=== PATIENT | male | born 1980 | race Caucasian/White ===

== ENCOUNTER 2021-10-01 22:03 | Emergency (ER) | payer OTHER ==
[~2021-10-01] VITALS: Ht 185 cm; Wt 142.7 kg
[2021-10-01] MEDS ORDERED: ACETAMINOPHEN 325 MG TABLET PO ONE (22:30)
[2021-10-01] MEDS ORDERED: NS IV 1000 ML 1,000 ML IV SCH (22:30)
--- NOTE | 2021-10-01 22:40 | ED General ---
General Stated Complaint: FEVER,CHILLS Source of Information: Patient History of Present Illness Date Seen by Provider: Oct 01, 2021 Time Seen by Provider: 22:08 Initial Comments 41-year-old male presenting with complaints of fever, chills, general weakness and lightheadedness. He felt like he could pass out tonight when he was getting up and trying to walk around. He has been coughing and coughing up some thick sputum. He denies any known ill contacts. He has had subjective fever but states he does not have a thermometer so is not sure how high his fever gotten. He has had some chills along with this. He has had some loose stools but denies any vomiting. He has a history of high blood pressure but does not take any medications and does not follow with any medical providers. He has a mild headache on presentation to the ED. His symptoms have been going on for for 5 days but he only now came to be seen in the emergency department. He states there is nothing different tonight other than he just feels weak and lightheaded. He has not tried to go to an urgent care or be seen anytime before tonight, on . Timing/Duration: 4-5 Days Severity: Moderate Modifying Factors: worse with Movement Associated Systoms: No Chest Pain; Cough, Diaphoresis, Fever/Chills, Headaches, Malaise; No Nausea/Vomiting, No Seizure; Shortness of Air; No Syncope; Weakness (Generalized) Allergies and Home Medications Allergies Coded Allergies: Penicillins (Verified Allergy, Severe, Anaphylaxis, 10/01/21) Iodine and Iodide Containing Produc (Verified Allergy, Intermediate, 10/01/21) swelling Patient Home Medication List Home Medication List Reviewed: Yes Azithromycin (Azithromycin) 500 Mg Tablet, 500 MG PO DAILY Prescribed by: DESIREE SILVA on 10/01/21 2341 Lisinopril/Hydrochlorothiazide (Lisinopril-Hctz 10-12.5 mg Tab) 1 Each Tablet, 1 EACH PO DAILY Prescribed by: DESIREE SILVA on 10/01/21 2341 Review of Systems Review of Systems Constitutional: see HPI, chills, fever EENTM: nose congestion; No epistaxis Respiratory: cough, dyspnea on exertion, phlegm, short of breath; No stridor, No wheezing Cardiovascular: No chest pain, No edema; palpitations Gastrointestinal: No abdominal pain; diarrhea (Loose stools); No nausea, No vomiting Genitourinary: No dysuria, No frequency Musculoskeletal: muscle pain (Generalized body aches and muscle and joint pain) Skin: No rash Psychiatric/Neurological: Headache (Mild generalized headache); Denies Numbnes s, Denies Paresthesia, Denies Seizure, Denies Tingling, Denies Tremors; Weakness (Generalized) Hematologic/Lymphatic: Denies Blood Clots Past Mwgcwmw-Ieuqst-Jhhtic Hx Patient Social History Tobacco Use?: No Use of E-Cig and/or Vaping dev: No Substance use?: No Alcohol Use?: No Immunizations Up To Date Influenza Vaccine Up-to-Date: No; Not Current Past Medical History Surgery/Hospitalization HX: Hypertension Surgeries: Yes Tonsillectomy Respiratory: No Cardiac: Yes Hypertension Neurological: No Genitourinary: No Gastrointestinal: No Musculoskeletal: No Endocrine: No HEENT: No Psychosocial: No Physical Exam Vital Signs Vital Signs - First Documented 10/01/21 22:10 Temp 39.1 Pulse 135 Resp 20 B/P (MAP) 160/109 (126) Pulse Ox 94 O2 Delivery Room Air Capillary Refill : Height, Weight, BMI Height: '" Weight: lbs. oz. kg; BMI Method: General Appearance: Mild Distress, Obese HEENT: PERRL/EOMI; No TMs Normal (Bilateral erythematous TMs), No Moist Mucous Membranes (Slightly dry mucous membranes); Pharyngeal Erythema Neck: Full Range of Motion, Normal Inspection, Non Tender, Supple Respiratory: Chest Non Tender, Lungs Clear, Normal Breath Sounds, No Accessory Muscle Use, No Respiratory Distress Cardiovascular: Normal Peripheral Pulses, Tachycardia Gastrointestinal: Normal Bowel Sounds, No Pulsatile Mass, Non Tender, Soft Rectal: Deferred Back: No CVA Tenderness Extremity: Normal Capillary Refill, Normal Inspection, No Pedal Edema Neurologic/Psychiatric: Alert, Oriented x3, cake maker II-XII Norm as Tested Skin: Normal Color, Warm/Dry Focused Exam Lactate Level 10/01/21 22:30: Lactic Acid Level 2.27*H Lactic Acid Level Laboratory Tests Test 10/01/21 22:30 Lactic Acid Level 2.27 MMOL/L (0.50-2.00) *H Progress/Results/Core Measures Suspected Sepsis SIRS Temperature: Pulse: Respiratory Rate: Laboratory Tests 10/01/21 22:30: White Blood Count 5.2 Blood Pressure / Mean: 10/01/21 22:30: Lactic Acid Level 2.27*H Laboratory Tests 10/01/21 22:30: Creatinine 0.95, INR Comment 0.8, Platelet Count 148, Total Bilirubin 0.6 Results/Orders Lab Results Laboratory Tests Test 10/01/21 22:30 10/01/21 22:44 Range/Units White Blood Count 5.2 4.3-11.0 10^3/uL Red Blood Count 5.92 H 4.30-5.52 10^6/uL Hemoglobin 16.9 13.3-17.7 g/dL Hematocrit 48 40-54 % Mean Corpuscular Volume 81 80-99 fL Mean Corpuscular Hemoglobin 29 25-34 pg Mean Corpuscular Hemoglobin Concent 35 32-36 g/dL Red Cell Distribution Width 12.1 10.0-14.5 % Platelet Count 148 130-400 10^3/uL Mean Platelet Volume 10.6 9.0-12.2 fL Immature Granulocyte % (Auto) 1 % Neutrophils (%) (Auto) 71 42-75 % Lymphocytes (%) (Auto) 22 12-44 % Monocytes (%) (Auto) 5 0-12 % Eosinophils (%) (Auto) 0 0-10 % Basophils (%) (Auto) 0 0-10 % Neutrophils # (Auto) 3.7 1.8-7.8 X 10^3 Lymphocytes # (Auto) 1.1 1.0-4.0 X 10^3 Monocytes # (Auto) 0.3 0.0-1.0 X 10^3 Eosinophils # (Auto) 0.0 0.0-0.3 10^3/uL Basophils # (Auto) 0.0 0.0-0.1 10^3/uL Immature Granulocyte # (Auto) 0.1 0.0-0.1 10^3/uL Prothrombin Time 11.8 L 12.2-14.7 SEC INR Comment 0.8 0.8-1.4 Activated Partial Thromboplast Time 26 24-35 SEC Sodium Level 134 L 135-145 MMOL/L Potassium Level 4.2 3.6-5.0 MMOL/L Chloride Level 96 L 98-107 MMOL/L Carbon Dioxide Level 25 21-32 MMOL/L Anion Gap 13 5-14 MMOL/L Blood Urea Nitrogen 15 7-18 MG/DL Creatinine 0.95 0.60-1.30 MG/DL Estimat Glomerular Filtration Rate 87 BUN/Creatinine Ratio 16 Glucose Level 283 H 70-105 MG/DL Lactic Acid Level 2.27 *H 0.50-2.00 MMOL/L Calcium Level 9.1 8.5-10.1 MG/DL Corrected Calcium 9.0 8.5-10.1 MG/DL Total Bilirubin 0.6 0.1-1.0 MG/DL Aspartate Amino Transf (AST/SGOT) 38 H 5-34 U/L Alanine Aminotransferase (ALT/SGPT) 45 0-55 U/L Alkaline Phosphatase 95 40-136 U/L Troponin I < 0.30 <0.30 NG/ML C-Reactive Protein 5.81 H <0.50 MG/DL Total Protein 7.5 6.4-8.2 GM/DL Albumin 4.1 3.2-4.5 GM/DL Influenza Type A Antigen NEGATIVE NEGATIVE Influenza Type B Antigen NEGATIVE NEGATIVE My Orders Orders - DESIREE SILVA MD Monitor-Rhythm Ecg Trace Only (10/01/21:30) Ed Iv/Invasive Line Start (10/01/21:30) Cbc With Automated Diff (10/01/21:) Comprehensive Metabolic Panel (10/01/21:30) Crp Fs (10/01/21:) Troponin I Fs (10/01/21:30) Protime With Inr (10/01/21:30) Partial Thromboplastin Time (10/01/21:30) Ekg Tracing (10/01/21:30) Ns Iv 1000 Ml (Sodium Chloride 0.9%) (10/01/21 22:30) Acetaminophen Tablet/Caplet (Tylenol T (10/01/21 22:30) Chest 1 View Ap/Pa Only (10/01/21:30) Blood Culture (10/01/21:30) Lactic Acid Analyzer (10/01/21:30) Ua Culture If Indicated (10/01/21:30) Covid 19 Inhouse Test (10/01/21 22:33) Influenza A & B Antigens (10/01/21 22:33) Isolation Central Supply Req (10/01/21 22:33) Azithromycin Tablet (Zithromax Tablet) (10/01/21 23:20) Ns Iv 1000 Ml (Sodium Chloride 0.9%) (10/01/21 23:20) Ceftriaxone (Rocephin) (10/01/21 23:20) Albuterol Inhaler (Albuterol) (10/01/21 23:30) Nursing Communication (Order) (10/01/21 23:21) Medications Given in ED Current Medications Medications Dose Ordered Sig/Natalie Route Start Time Stop Time Status Last Admin Dose Admin Acetaminophen 650 mg ONCE ONCE PO 10/01/21 22:30 10/01/21 22:34 DC 10/01/21 22:42 650 MG Albuterol Sulfate 2 PUFFS inh q 2 hours ... Q2H PRN IH 10/01/21 23:30 10/01/21 23:33 8.5 GM Vital Signs/I&O 10/01/21 10/01/21 22:10 22:42 Temp 39.1 39.1 Pulse 135 Resp 20 B/P (MAP) 160/109 (126) Pulse Ox 94 O2 Delivery Room Air Capillary Refill : Progress Note #1: Progress Note Obtain basic labs including blood cultures and lactic acid with his fever. Give IV fluids for hydration. Acetaminophen for his fever. Chest x-ray to look for pneumonia. Urinalysis to evaluate his hydration status. Influenza and Covid swab. Progress Note #2: Progress Note His CBC shows no acute significant abnormality. His chemistry panel does show elevated glucose to indicate diabetes. He has mild elevation of his lactic acid to go along with dehydration. His influenza swab was negative. His electrocardiogram shows tachycardia. Progress Note #3: Progress Note CXR shows diffuse patchy infiltrates consistent with possible Covid pneumonia. Updated pt on findings and that he needs additional IVF for hydration before we discharge him to home. Counseled that will give him a first dose of antibiotic by IV and by mouth as well as an inhaler with spacer. Discharge on antibiotic and inhaler to treat for pneumonia. counseled on need to quarantine and isolate until results of Covid are back. Given information for clinic at [facility] to try and help get him established with primary provider. As I was reviewing this with the patient he became very anxious and said that if he can have his in the room with him he was going to rip his IV out and leave if we didn't discharge him. I told him that the nursing just spoke with his and she was aware of what was going on for him. She was waiting in the car and as soon as we finished giving him the fluid as well as starting his antibiotics for pneumonia and an inhaler he will be discharged so that he could go out to be with her. He continued to refuse and said if we were not allowing his to come back into the room that he would make his own IV out so he could leave. He wanted to go home right now and he would not do anything else. I explained that because of the possibility of Covid especially without his chest x-ray appears and his symptoms were presenting there was a risk for Covid and our policy was did not allow any visitors in the room. He said that he was scared and he wanted her back in the room or he was leaving. Again I tried to explain that after he got the medicine to treat pneumonia and another bag of fluids which we are going to use a pressure bag to get in faster he would be discharged and be able to go to the car with her. He still refused and stated again as he was motioning to his arm that he was going to pull his IV we didn't let him out right now. I asked him if he understood that he could very well from not receiving treatment and not allowing us to do this to help him and he said "I know but I don't care, I want to leave now". As I had spent almost 10 mi nutes just trying to explain why it was not a good idea or safe for him to leave [facility], I told him that I sincerely hope that he does not from his pneumonia, which is likely COVID, his high blood pressure, and his new diagnosis of diabetes. He said he was sorry but he just wants to leave. Again from the door I told him that I hope he gets better and survives this infection. I told him I would go let the nurse know that he is refusing his medicines and any further treatments and will pull out his own IV if we do not let him go right now so he can see his . With him having lactic acid of just over 2.27 will defer repeating lactic acid and have him push fluids and rest Progress Note #4: Progress Note The nurse had his medications already drawn up and ready to administer when I went to tell her that he was refusing them and wants to leave AMA. She had gotten in the room with the medicines and fluids and was able to convince him to wait for the medication. However as she was getting ready to give him antibiotics he panicked and refused the medicine saying that he was allergic to penicillin and that makes his airway shut off. He demanded that we check with his before he would take any other medicine. He had not said he was lionel rgic to penicillin initially. He had only said iodine. Now he had added in the penicillins. When his was contacted she stated they were unsure about his reaction to penicillins because they had never "risked giving him a penicillin". Since Rocephin and Zithromax are not penicillins will give him those as planned and continue with albuterol inhaler with spacer and send script for rest of z- pack 500 mg a day for 4 more days to pharmacy. Since he also has high blood pressure will send script for Lisinopril/Hctz 10/12.5 mg daily for blood pressure, # 30. Given information for the [facility] clinic for follow-up. Also advised on follow-up and return precautions about his pneumonia, possible Covid, diabetes, hypertension, diet changes to help manage his diabetes and hypertension. ECG Initial ECG Impression Date: Oct 01, 2021 Initial ECG Impression Time: 22:33 Initial ECG Rate: 127 Initial ECG Rhythm: S.Tach Initial ECG Comparisson: No Previous ECG Available Comment Sinus tachycardia with heart rate of 127 bpm. NJ interval 147. Borderline left axis deviation. QT interval 287 ms with a QTc interval 418 ms. There is no ac diomede ST elevation. There is no prior tracing available for comparison. Diagnostic Imaging Diagonstic Imaging: Xray Plain Films/CT/US/NM/MRI: chest Comments NAME: [facility]BIE [facility] REC#: [id number] PT STATUS: REG ER : 1980 PHYSICIAN: DESIREE SILVA MD ADMIT DATE: 10/01/21/ER FS Draft Date of Exam:10/01/21 CHEST 1 VIEW AP/PA ONLY EXAMINATION: Chest one view at 1047 PM INDICATION: Cough, Covid There are no prior studies available for comparison. This exam is less than optimal as the study is taken in shallow inspiration. Allowing for this technical factor, the heart size is at the upper limits of normal. There is a patchy alveolar/interstitial infiltrate in the left perihilar region and in the right infrahilar region. These findings do suggest pneumonia/atelectasis and may well be secondary to the patient's diagnosis of Covid-19. The lungs are otherwise clear. There is no significant pleural effusion identified. The mediastinum is not widened. The osseous structures are intact. IMPRESSION: There is left perihilar and right infrahilar pneumonia/atelectasis. These findings may well be due to the patient's diagnosis of Covid-19. Clinical follow-up is recommended. Dictated on workstation # [id number] Dict: 10/01/21 2259 Trans: 10/01/21 2310 [facility] [id number] Interpreted by: VAIBHAV MOYA MD Electronically signed by: Reviewed: Reviewed by Me Departure Impression Primary Impression: Person under investigation for COVID-19 Additional Impressions: Fever in adult Dehydration Diabetes mellitus, new onset Pneumonia, unspecified organism Qualified Codes: J18.9 - Pneumonia, unspecified organism Hypertension Qualified Codes: I10 - Essential (primary) hypertension Disposition: HOME, SELF-CARE Condition: Stable Departure-Patient Inst. Decision time for Depature: 23:31 Referrals: [facility] Patient Instructions: COVID-19 ED, Dehydration, Adult ED, Fever, Adult ED, High Blood Sugar, Adult ED, How to Use Your Metered Dose Inhaler (Adults), How to Use a Spacer, Pneumonia, Adult ED, DASH Diet, Diabetes and Diet Add. Discharge Instructions: You need to take antibiotic to treat for pneumonia. Use inhaler and spacer to help with your cough and shortness of breath. Take 2 puffs with spacer every 4 hours as needed for shortness of breath. Call [facility] clinic at [phone] Sunday morning and they can help get you established for care and follow up. They can see you even before your insurance kicks in as well as after it takes effect. Make sure you are drinking plenty of fluids and staying well hydrated. When you follow up with the clinic you need to have them work with you to help treat your blood pressure and your blood sugars to get them both under control. You need to quarantine and isolate until you have the results of your Covid test. If it comes back positive then you will get a call this weekend to let you know. If it is positive you need to remain in quarantine for 10 days. Scripts Lisinopril/Hydrochlorothiazide (Lisinopril-Hctz 10-12.5 mg Tab) 1 Each Tablet 1 EACH PO DAILY for Blood Pressure for 30 Days, #30 TAB 0 Refills Prov: DESIREE SILVA MD 10/01/21 Azithromycin (Azithromycin) 500 Mg Tablet 500 MG PO DAILY for pneumonia for 4 Days, #4 TAB 0 Refills Prov: DESIREE SILVA MD 10/01/21 DESIREE SILVA MD Oct 01, 2021 22:39
[2021-10-01 22:41] LABS: BASOPHILS % (AUTO) 0 % (0-10); EOSINOPHILS % (AUTO) 0 % (0-10); HEMATOCRIT 48 % (40-54); HEMOGLOBIN 16.9 g/dL (13.3-17.7); LYMPHOCYTES # (AUTO) 1.1 X 10^3 (1.0-4.0); LYMPHOCYTES % (AUTO) 22 % (12-44); MEAN CORPUSCULAR HEMOGLOBIN 29 pg (25-34); MEAN CORPUSCULAR HGB CONC 35 g/dL (32-36); MEAN CORPUSCULAR VOLUME 81 fL (80-99); MEAN PLATELET VOLUME 10.6 fL (9.0-12.2); MONOCYTES # (AUTO) 0.3 X 10^3 (0.0-1.0); MONOCYTES % (AUTO) 5 % (0-12); NEUTROPHILS # (AUTO) 3.7 X 10^3 (1.8-7.8); NEUTROPHILS % (AUTO) 71 % (42-75); PLATELET COUNT 148 10^3/uL (130-400); WHITE BLOOD COUNT 5.2 10^3/uL (4.3-11.0)
[2021-10-01 22:51] LABS: INR 0.8 (0.8-1.4); PROTHROMBIN TIME PATIENT 11.8 SEC (12.2-14.7)
[2021-10-01 23:00] LABS: ALKALINE PHOSPHATASE 95 U/L (40-136); BILIRUBIN,TOTAL 0.6 MG/DL (0.1-1.0); BUN/CREATININE RATIO 16; CALCIUM 9.1 MG/DL (8.5-10.1); CARBON DIOXIDE 25 MMOL/L (21-32); CHLORIDE 96 MMOL/L (98-107); CREATININE SERUM 0.95 MG/DL (0.60-1.30); GFR ESTIMATED 87; GLUCOSE 283 MG/DL (70-105); POTASSIUM 4.2 MMOL/L (3.6-5.0); SODIUM 134 MMOL/L (135-145)
[2021-10-01 23:01] LABS: ALANINE AMINOTRANSFERASE 45 U/L (0-55); ALBUMIN 4.1 GM/DL (3.2-4.5); TOTAL PROTEIN 7.5 GM/DL (6.4-8.2)
--- NOTE | 2021-10-01 23:12 | Diagnostic Imaging Report ---
EXAMINATION: Chest one view at 1047 PM INDICATION: Cough, Covid There are no prior studies available for comparison. This exam is less than optimal as the study is taken in shallow inspiration. Allowing for this technical factor, the heart size is at the upper limits of normal. There is a patchy alveolar/interstitial infiltrate in the left perihilar region and in the right infrahilar region. These findings do suggest pneumonia/atelectasis and may well be secondary to the patient's diagnosis of Covid-19. The lungs are otherwise clear. There is no significant pleural effusion identified. The mediastinum is not widened. The osseous structures are intact. IMPRESSION: There is left perihilar and right infrahilar pneumonia/atelectasis. These findings may well be due to the patient's diagnosis of Covid-19. Clinical follow-up is recommended. Dictated by: Dictated on workstation # [id number]
[2021-10-01] MEDS ORDERED: cefTRIAXone 1,000 MG in WATER (STERILE) FOR INJECTION 5 ML IV STA (23:20)
[2021-10-01] MEDS ORDERED: NS IV 1000 ML 1,000 ML IV STA (23:20)
[2021-10-01] MEDS ORDERED: AZITHROMYCIN 250 MG TAB (ZITHROMAX) PO STA (23:20)
[2021-10-01] MEDS ORDERED: RT-ALBUTEROL HFA 8.5 GM INHALER IH PRN (23:30)
[2021-10-01] MEDS ORDERED: LISI1TAB44 PO (23:41)
[2021-10-01] MEDS ORDERED: AZIT500T9 PO (23:41)
[2021-10-02 00:10] VITALS: BP 155/93
== END 2021-10-02 00:10 | disposition home or self-care (01) ==
LOC: ER FS 22:07
DX: U07.1 COVID-19 (principal); J12.82 Pneumonia due to coronavirus disease 2019; I10 Essential (primary) hypertension; E11.9 Type 2 diabetes mellitus without complications; Z88.0 Allergy status to penicillin; Z79.899 Other long term (current) drug therapy
CPT/HCPCS: 36415; 71045; 80053; 83605; 84484; 85025; 85610; 85730; 86141; 87040; 87636; 87804; 93005; 93041

== ENCOUNTER 2021-10-05 08:20 | Inpatient (IN) | payer SELFPAY ==
[~2021-10-05] VITALS: Ht 182 cm; Wt 132.7 kg
[~2021-10-05 08:20] MED LIST: AZIT500T9 PO; LISI1TAB44 PO
--- NOTE | 2021-10-05 08:58 | ED General ---
General Chief Complaint: Respiratory Problems Stated Complaint: COVID+ Source of Information: Patient Exam Limitations: No Limitations History of Present Illness Date Seen by Provider: Oct 05, 2021 Time Seen by Provider: 08:20 Initial Comments Here by EMS with report of hypoxia at home. Patient is Covid positive since before . Apparently he is at day 9 currently. Testing was done through this emergency department. His was sick previously and has recovered. He is not vaccinated and has not had monoclonal antibody. Denies other significant illnesses but was found to be hypertensive on previous visit and was started on medications for that. Has had decreased appetite and has had decreased intake of fluids due to feeling ill. Has had some nausea without vomiting. Denies diarrhea. Does admit to some abdominal cramping. Has had fever and chills. Apparently, has been trying to get him to come to the hospital for several days. Noted to be increasingly short of breath this morning and they used an oxygen concentrator from another family member which helped some. He is not normally on oxygen. Initial O2 sat on EMS arrival was 80% and he did improve with high flow O2 to above 90. States he is concerned that he is going to and he does not want to . Timing/Duration: Getting Worse, Other (9 days) Severity: Moderate, Severe Associated Systoms: No Chest Pain; Cough, Fever/Chills, Loss of Appetite, Nausea/Vomiting, Shortness of Air, Weakness Allergies and Home Medications Allergies Coded Allergies: Penicillins (Verified Allergy, Severe, Anaphylaxis, 10/01/21) Iodine and Iodide Containing Produc (Verified Allergy, Intermediate, 10/01/21) swelling Patient Home Medication List Home Medication List Reviewed: Yes Azithromycin (Azithromycin) 500 Mg Tablet, 500 MG PO DAILY Prescribed by: DESIREE SILVA on 10/01/21 2341 Lisinopril/Hydrochlorothiazide (Lisinopril-Hctz 10-12.5 mg Tab) 1 Each Tablet, 1 EACH PO DAILY Prescribed by: DESIREE SILVA on 10/01/21 2341 Review of Systems Review of Systems Constitutional: see HPI, chills, fever EENTM: nose congestion, throat pain Respiratory: cough, dyspnea on exertion, short of breath Cardiovascular: No chest pain, No edema Gastrointestinal: see HPI; No vomiting Genitourinary: no symptoms reported Musculoskeletal: muscle pain, muscle weakness Skin: no symptoms reported Psychiatric/Neurological: Anxiety, Weakness All Other Systems Reviewed Negative Unless Noted: Yes Past Htcekpb-Fyjvqc-Mfxqvv Hx Patient Social History Tobacco Use?: No Substance use?: No Alcohol Use?: No Past Medical History Surgery/Hospitalization HX: Hypertension Surgeries: Yes Tonsillectomy Respiratory: No Cardiac: Yes Hypertension Neurological: No Genitourinary: No Gastrointestinal: No Musculoskeletal: No Endocrine: No HEENT: No Psychosocial: No Family Medical History Reviewed Nursing Family Hx No Pertinent Family Hx Physical Exam-Suspected Sepsis Physical Exam Vital Signs Vital Signs - First Documented 10/05/21 08:20 Temp 35.9 Pulse 88 Resp 18 B/P (MAP) 127/96 (106) Pulse Ox 96 O2 Delivery Nasal Cannula O2 Flow Rate 2.00 Capillary Refill : Height, Weight, BMI Height: '" Weight: lbs. oz. kg; 41.00 BMI Method: General Appearance: WD/WN, Anxious, Mild Distress HEENT: PERRL/EOMI, Pharyngeal Erythema Neck: Non Tender, Supple Respiratory: Crackles, Decreased Breath Sounds Cardiovascular: No Murmur, Tachycardia Gastrointestinal: Non Tender, Soft Back: Normal Inspection, No CVA Tenderness, No Vertebral Tenderness Extremity: Normal Range of Motion, Non Tender Neurologic/Psychiatric: Alert, Oriented x3 Skin: normal color, warm/dry Focused Exam Lactate Level 10/05/21 08:40: Lactic Acid Level 1.31 Lactic Acid Level Laboratory Tests Test 10/05/21 08:40 Lactic Acid Level 1.31 MMOL/L (0.50-2.00) Progress/Results/Core Measures Suspected Sepsis SIRS Temperature: Pulse: Respiratory Rate: Laboratory Tests 10/05/21 08:40: White Blood Count 4.4 Blood Pressure / Mean: 10/05/21 08:40: Lactic Acid Level 1.31 Laboratory Tests 10/05/21 08:40: Creatinine 0.68, INR Comment 0.9, Platelet Count 227, Total Bilirubin 0.6 Results/Orders Lab Results Laboratory Tests Test 10/05/21 08:40 Range/Units White Blood Count 4.4 4.3-11.0 10^3/uL Red Blood Count 5.19 4.30-5.52 10^6/uL Hemoglobin 14.7 13.3-17.7 g/dL Hematocrit 43 40-54 % Mean Corpuscular Volume 82 80-99 fL Mean Corpuscular Hemoglobin 28 25-34 pg Mean Corpuscular Hemoglobin Concent 34 32-36 g/dL Red Cell Distribution Width 12.1 10.0-14.5 % Platelet Count 227 130-400 10^3/uL Mean Platelet Volume 10.5 9.0-12.2 fL Immature Granulocyte % (Auto) 2 % Neutrophils (%) (Auto) 60 42-75 % Lymphocytes (%) (Auto) 31 12-44 % Monocytes (%) (Auto) 6 0-12 % Eosinophils (%) (Auto) 0 0-10 % Basophils (%) (Auto) 1 0-10 % Neutrophils # (Auto) 2.7 1.8-7.8 X 10^3 Lymphocytes # (Auto) 1.4 1.0-4.0 X 10^3 Monocytes # (Auto) 0.3 0.0-1.0 X 10^3 Eosinophils # (Auto) 0.0 0.0-0.3 10^3/uL Basophils # (Auto) 0.0 0.0-0.1 10^3/uL Immature Granulocyte # (Auto) 0.1 0.0-0.1 10^3/uL Neutrophils % (Manual) 46 % Lymphocytes % (Manual) 11 % Monocytes % (Manual) 8 % Eosinophils % (Manual) 1 % Basophils % (Manual) 0 % Band Neutrophils 16 % Atypical Lymphocytes 18 % Platelet Estimate NORMAL Blood Morphology Comment NORMAL Prothrombin Time 12.5 12.2-14.7 SEC INR Comment 0.9 0.8-1.4 Activated Partial Thromboplast Time 25 24-35 SEC D-Dimer 1.15 H 0.00-0.49 UG/ML Sodium Level 137 135-145 MMOL/L Potassium Level 3.5 L 3.6-5.0 MMOL/L Chloride Level 101 98-107 MMOL/L Carbon Dioxide Level 26 21-32 MMOL/L Anion Gap 10 5-14 MMOL/L Blood Urea Nitrogen 13 7-18 MG/DL Creatinine 0.68 0.60-1.30 MG/DL Estimat Glomerular Filtration Rate 128 BUN/Creatinine Ratio 19 Glucose Level 224 H 70-105 MG/DL Lactic Acid Level 1.31 0.50-2.00 MMOL/L Calcium Level 8.7 8.5-10.1 MG/DL Corrected Calcium 9.2 8.5-10.1 MG/DL Total Bilirubin 0.6 0.1-1.0 MG/DL Aspartate Amino Transf (AST/SGOT) 30 5-34 U/L Alanine Aminotransferase (ALT/SGPT) 25 0-55 U/L Alkaline Phosphatase 70 40-136 U/L C-Reactive Protein 10.29 H <0.50 MG/DL Total Protein 6.8 6.4-8.2 GM/DL Albumin 3.4 3.2-4.5 GM/DL My Orders Orders - MAHESH DE LA CRUZ MD Dexamethasone Injection (Decadron Inje (10/05/21 08:28) Cbc With Automated Diff (10/05/21 08:36) Comprehensive Metabolic Panel (10/05/21 08:36) Blood Culture (10/05/21 08:36) Sputum Culture (10/05/21 08:36) Urinalysis (10/05/21 08:36) Urine Culture (10/05/21 08:36) Protime With Inr (10/05/21 08:36) Partial Thromboplastin Time (10/05/21 08:36) Chest 1 View Ap/Pa Only (10/05/21 08:36) Ed Iv/Invasive Line Start (10/05/21 08:36) Ekg Tracing (10/05/21 08:36) Vital Signs Adult Sepsis Patie Q15M (10/05/21 08:36) O2 (10/05/21 08:36) Remove Rings In Anticipation O (10/05/21 08:36) Lactic Acid Analyzer (10/05/21 08:36) Fibrin Degradation Products (10/05/21 08:36) Procalcitonin (Pct) (10/05/21 08:36) Crp Fs (10/05/21 08:36) Dexamethasone Injection (Decadron Inje (10/05/21 08:45) Manual Differential (10/05/21 08:40) Ondansetron Injection (Zofran Injectio (10/05/21 10:15) Medications Given in ED Current Medications Medications Dose Ordered Sig/Natalie Route Start Time Stop Time Status Last Admin Dose Admin Dexamethasone Sodium Phosphate 6 mg ONCE ONCE IV 10/05/21 08:45 10/05/21 08:46 DC 10/05/21 08:43 6 MG Vital Signs/I&O 10/05/21 10/05/21 10/05/21 08:20 08:20 08:51 Temp 35.9 Pulse 88 Resp 18 B/P (MAP) 127/96 (106) Pulse Ox 96 95 O2 Delivery Nasal Cannula High Flow N/C High Flow N/C O2 Flow Rate 2.00 8.00 6.00 Capillary Refill : Progress Note : Progress Note Seen and evaluated. IV established by EMS with normal saline 1 L bolus running. We will continue that. Patient on high flow O2 via nonrebreather. This was converted to high flow nasal cannula at 8 L which keeps O2 saturation at 93%. Sepsis protocol initiated. Decadron 6 mg IV given. I did discuss findings and concerns with patient's . Patient will require admission. Currently stable for medical bed given current oxygen requirement. Monitor patient. Patient had Covid positive test on 10/01/2021 through our system here. 1020: I did discuss the case with Dr. Alonso and he accepts patient for admission to [facility] inpatient status. I did discuss with the patient regarding Actemra and the risk and benefits and patient states that he wants everything he can get and accepts that. Request full code. ECG Initial ECG Impression Date: Oct 05, 2021 Initial ECG Impression Time: 08:28 Initial ECG Rate: 93 Initial ECG Rhythm: Normal Sinus Comment Sinus rhythm with rate of 93. Normal axis. No evidence of ST elevation [place]. Change from previous which showed sinus tachycardia on 10/01/2021. Interpreted by me. Diagnostic Imaging Diagonstic Imaging: Xray Plain Films/CT/US/NM/MRI: chest Comments Bilateral pulmonary infiltrates consistent with Covid pneumonia, reviewed by me. See final report for details. [facility] [place], [place] NAME: DEBBIE MACE [facility] REC#: [id number] PT STATUS: REG ER : 1980 PHYSICIAN: MAHESH DE LA CRUZ MD ADMIT DATE: 10/05/21/ER FS Draft Date of Exam:10/05/21 CHEST 1 VIEW AP/PA ONLY INDICATION: Hypoxia, Covid patient. COMPARISON: 10/01/2021. FINDINGS: There are progressive and now substantial multifocal patchy bilateral infiltrates which are nonspecific but compatible with the provided history of Covid. No pneumothorax. Upper limits heart size is noted with blunting of the right angle. A tiny amount of right pleural fluid could not be excluded. IMPRESSION: Progressive multifocal bilateral infiltrates. Equivocal findings for a very small right pleural effusion. No pneumothorax. The report was faxed to Infection Control by meme@9:02 AM. Dictated on workstation # [id number] Dict: 10/05/21 0859 Trans: 10/05/21 0903 [id number] Interpreted by: ONESIMO GOODE Electronically signed by: Reviewed: Reviewed by Me Departure Communication (Admissions) Time/Spoke to Admitting Phy: 10:20 Impression Primary Impression: Pneumonia due to COVID-19 virus Additional Impression: Acute hypoxemic respiratory failure due to COVID-19 Disposition: 30 STILL A PATIENT Condition: Stable Admissions Decision to Admit Reason: Admit from ER (General) Decision to Admit/Date: Oct 05, 2021 Time/Decision to Admit Time: 10:20 Departure-Patient Inst. Referrals: NO,LOCAL PHYSICIAN (PCP) Primary Care Physician MAHESH DE LA CRUZ MD Oct 05, 2021 08:58
--- NOTE | 2021-10-05 09:03 | Diagnostic Imaging Report ---
INDICATION: Hypoxia, Covid patient. COMPARISON: 10/01/2021. FINDINGS: There are progressive and now substantial multifocal patchy bilateral infiltrates which are nonspecific but compatible with the provided history of Covid. No pneumothorax. Upper limits heart size is noted with blunting of the right angle. A tiny amount of right pleural fluid could not be excluded. IMPRESSION: Progressive multifocal bilateral infiltrates. Equivocal findings for a very small right pleural effusion. No pneumothorax. The report was faxed to Infection Control by meme@9:02 AM. Dictated by: Dictated on workstation # [id number]
[2021-10-05 09:09] LABS: BASOPHILS % (AUTO) 1 % (0-10); HEMATOCRIT 43 % (40-54); HEMOGLOBIN 14.7 g/dL (13.3-17.7); LYMPHOCYTES % (AUTO) 31 % (12-44); MEAN CORPUSCULAR HEMOGLOBIN 28 pg (25-34); MEAN CORPUSCULAR HGB CONC 34 g/dL (32-36); MEAN CORPUSCULAR VOLUME 82 fL (80-99); MEAN PLATELET VOLUME 10.5 fL (9.0-12.2); MONOCYTES % (AUTO) 6 % (0-12); PLATELET COUNT 227 10^3/uL (130-400); WHITE BLOOD COUNT 4.4 10^3/uL (4.3-11.0)
[2021-10-05 09:10] LABS: EOSINOPHILS % (AUTO) 0 % (0-10); LYMPHOCYTES # (AUTO) 1.4 X 10^3 (1.0-4.0); MONOCYTES # (AUTO) 0.3 X 10^3 (0.0-1.0); NEUTROPHILS # (AUTO) 2.7 X 10^3 (1.8-7.8); NEUTROPHILS % (AUTO) 60 % (42-75)
[2021-10-05 09:12] LABS: CREATININE SERUM 0.68 MG/DL (0.60-1.30); POTASSIUM 3.5 MMOL/L (3.6-5.0)
[2021-10-05 09:13] LABS: ALBUMIN 3.4 GM/DL (3.2-4.5); BILIRUBIN,TOTAL 0.6 MG/DL (0.1-1.0); CALCIUM 8.7 MG/DL (8.5-10.1); TOTAL PROTEIN 6.8 GM/DL (6.4-8.2)
[2021-10-05 09:15] LABS: INR 0.9 (0.8-1.4); PROTHROMBIN TIME PATIENT 12.5 SEC (12.2-14.7)
[2021-10-05 09:22] LABS: ATYPICAL LYMPHOCYTES 18 %; BAND NEUTROPHILS 16 %; BASOPHILS % (MANUAL) 0 %; EOSINOPHILS % (MANUAL) 1 %; LYMPHOCYTES % (MANUAL) 11 %; MONOCYTES % (MANUAL) 8 %; NEUTROPHILS % (MANUAL) 46 %; PLATELET ESTIMATE NORMAL; RBC MORPH NORMAL
[2021-10-05 09:24] LABS: FIBRIN DEGRADATION PRODUCTS 1.15 UG/ML (0.00-0.49)
[2021-10-05] MEDS ORDERED: ONDANSETRON 4 MG/2 ML (SDV) Z0FRAN IVP ONE (10:15)
[2021-10-05 10:46] LABS: BILIRUBIN,URINE NEGATIVE (NEGATIVE); CLARITY,URINE CLEAR; GLUCOSE, URINE (UA) NEGATIVE (NEGATIVE); KETONES,URINE NEGATIVE (NEGATIVE); LEUKOCYTE ESTERASE ,URINE NEGATIVE (NEGATIVE); NITRITE,URINE NEGATIVE (NEGATIVE); PROTEIN,URINE NEGATIVE (NEGATIVE)
[2021-10-05 10:58] LABS: BACTERIA,URINE NEGATIVE /HPF; COLOR,URINE DARK YELLOW; GRANULAR CASTS,URINE RARE /LPF; RBC,URINE RARE /HPF; SQUAMOUS EPITHELIAL CELL,UR RARE /HPF
[2021-10-05 10:59] LABS: WHITE BLOOD CELL CASTS, URINE RARE /LPF
[2021-10-05] MEDS ORDERED: fentaNYL INJ 100 MCG/2 ML AMP IVP STA (12:43)
[2021-10-05] MEDS ORDERED: FAMOTIDINE 20MG/2ML IV (PEPCID) IV STA (12:43)
[2021-10-05] MEDS ORDERED: ONDANSETRON 4 MG (ZOFRAN) ORAL DISSOLVE TAB PO PRN ×3 (14:30→15:15)
[2021-10-05] MEDS ORDERED: MELATONIN 3 MG TABLET PO PRN ×3 (14:30→15:15)
[2021-10-05] MEDS ORDERED: ACETAMINOPHEN 325 MG TABLET PO PRN ×3 (14:30→15:15)
[2021-10-05] MEDS ORDERED: polyethylene glycoL POWDER 17 GM (MIRALAX) PACK PO PRN ×3 (14:30→15:15)
[2021-10-05] MEDS ORDERED: ONDANSETRON 4 MG/2 ML (SDV) Z0FRAN IV PRN ×3 (14:30→15:15)
[2021-10-05] MEDS ORDERED: ANTACID SUSP 30 ML UDC (MYLANTA) PO PRN ×3 (14:30→15:15)
[2021-10-05] MEDS ORDERED: diphenhydrAMINE 25 MG TAB (BENADRYL) PO PRN ×3 (14:30→15:15)
[2021-10-05] MEDS ORDERED: TOCILIZUMAB INJECTION (NON-FOR 800 MG in NS (IVPB) 60 ML IV ONE (15:00)
[2021-10-05] MEDS ORDERED: ENOXAPARIN 40 MG/0.4 ML (LOVENOX) SYR SC SCH ×2 (15:00)
[2021-10-05 15:27] VITALS: BP 135/67
[2021-10-05] MEDS: inSUlin ASPART (NovoLOG) 1 UNIT/0.01 ML (CHARGE PER UNIT) SC SCH ×2 (15:49→21:49)
[2021-10-05 15:56] VITALS: BP 135/67
[2021-10-05] MEDS ORDERED: TOCILIZUMAB INJECTION (NON-FOR 800 MG in NS (IVPB) 60 ML IV NR ×4 (16:00)
[2021-10-05] MEDS ORDERED: inSUlin ASPART (NovoLOG) 1 UNIT/0.01 ML (CHARGE PER UNIT) SC SCH ×2 (16:00)
[2021-10-05] MEDS: RT-ALBUTEROL HFA 8.5 GM INHALER IH SCH ×2 (19:15→22:17)
[2021-10-05 20:00] VITALS: BP 128/77
[2021-10-05] MEDS: ACYCLOVIR 400 MG TABLET (ZOVIRAX) PO SCH (21:49)
[2021-10-05 23:45] VITALS: BP 108/64
[2021-10-06] MEDS: RT-ALBUTEROL HFA 8.5 GM INHALER IH SCH ×6 (02:37→22:46)
[2021-10-06 05:00] VITALS: BP 130/88
[2021-10-06] MEDS ORDERED: POTASSIUM CL 10MEQ/50ML IVPB 50 ML IV SCH ×2 (06:00)
[2021-10-06] MEDS ORDERED: KCL 20 MEQ TAB (K-DUR) PO SCH ×2 (06:00)
[2021-10-06] MEDS ORDERED: MAGNESIUM 1 GM/100 ML IVPB 100 ML IV SCH ×2 (06:00)
[2021-10-06] MEDS: inSUlin ASPART (NovoLOG) 1 UNIT/0.01 ML (CHARGE PER UNIT) SC SCH ×5 (06:25→21:25)
[2021-10-06 06:28] LABS: BASOPHILS % (AUTO) 1 % (0-10); EOSINOPHILS % (AUTO) 0 % (0-10); HEMATOCRIT 42 % (40-54); LYMPHOCYTES # (AUTO) 1.7 10^3/uL (1.0-4.0); LYMPHOCYTES % (AUTO) 33 % (12-44); MEAN CORPUSCULAR HEMOGLOBIN 28 pg (25-34); MEAN CORPUSCULAR HGB CONC 33 g/dL (32-36); MEAN CORPUSCULAR VOLUME 84 fL (80-99); MEAN PLATELET VOLUME 10.5 fL (9.0-12.2); MONOCYTES # (AUTO) 0.4 10^3/uL (0.0-1.0); MONOCYTES % (AUTO) 8 % (0-12); NEUTROPHILS # (AUTO) 2.9 10^3/uL (1.8-7.8); NEUTROPHILS % (AUTO) 55 % (42-75); PLATELET COUNT 272 10^3/uL (130-400); WHITE BLOOD COUNT 5.2 10^3/uL (4.3-11.0)
[2021-10-06 06:48] LABS: POTASSIUM 3.9 MMOL/L (3.6-5.0)
[2021-10-06] MEDS: POTASSIUM CL 10MEQ/50ML IVPB 50 ML IV SCH (06:49)
[2021-10-06 06:50] LABS: CALCIUM 8.9 MG/DL (8.5-10.1)
[2021-10-06] MEDS: KCL 20 MEQ TAB (K-DUR) PO SCH (06:50)
[2021-10-06 06:54] LABS: CREATININE SERUM 0.85 MG/DL (0.60-1.30); PHOSPHORUS 3.7 MG/DL (2.3-4.7)
[2021-10-06] MEDS: MAGNESIUM 1 GM/100 ML IVPB 100 ML IV SCH (06:58)
[2021-10-06 07:48] VITALS: BP 122/74
[2021-10-06] MEDS: lisINopril 40 MG (PRINIVIL) TABLET PO SCH (09:23)
[2021-10-06] MEDS: ACYCLOVIR 400 MG TABLET (ZOVIRAX) PO SCH ×2 (09:23→21:25)
--- NOTE | 2021-10-06 09:48 | Diagnostic Imaging Report ---
CLINICAL INDICATION: Patient is Covid positive. EXAM: Portable chest x-ray upright view. COMPARISON: Portable chest x-ray dated 10/05/2021. FINDINGS: There are diffuse bilateral lung infiltrates and patchy areas of consolidation which has progressed in interim. There is no definite pleural effusion or pneumothorax. Cardiomegaly is seen. Pulmonary vasculature is obscured. The remainder of this exam shows no significant interval change compared to the prior study of comparison. IMPRESSION: 1: There is interval progression of diffuse bilateral lung infiltrates concerning for pneumonia. 2: There is cardiomegaly. Dictated by: Dictated on workstation # [id number]
[2021-10-06 11:25] VITALS: BP 129/85
[2021-10-06] MEDS ORDERED: AZIT500T9 PO (14:21)
[2021-10-06] MEDS ORDERED: LISI1TAB44 PO (14:21)
[2021-10-06] MEDS ORDERED: ENOXAPARIN 40 MG/0.4 ML (LOVENOX) SYR SC SCH (15:00)
--- NOTE | 2021-10-06 15:56 | History & Physical-Hospitalist ---
History of Present Illness HPI/Chief Complaint Lory Esposito is a 41 year old male who presented with shortness of breath. He was diagnosed with COVID 10 days ago. He is not vaccinated. He has had fevers and chills. He has a cough. He had nausea. He denies chest pain. He denies abdominal pain, vomiting, and diarrhea. He has not been taking any meds at home to treat the COVID. He has no history of diabetes. Source: patient Exam Limitations: no limitations Date Seen 10/06/21 Time Seen by a Provider: 10:00 Attending Physician Rylie Mustafa MD PCP No,Local Physician Referring Physician Date of Admission Oct 05, 2021 at 14:35 Home Medications & Allergies Home Medications Reviewed patient Home Medication Reconciliation performed by pharmacy medication reconciliations systems protection technician and/or nursing. Patients Allergies have been reviewed. Allergies Allergies Coded Allergies Penicillins (Verified Allergy, Severe, Anaphylaxis, 10/01/21) Iodine and Iodide Containing Produc (Verified Allergy, Intermediate, 10/01/21) swelling Past Jrmupxy-Nryypv-Nqskcp Hx Patient Social History Tobacco Use?: No Smoking Status: Never a Smoker Use of E-Cig and/or Vaping dev: No Substance use?: No Alcohol Use?: No Pt feels they are or have been: No Immunizations Up To Date First/Initial COVID19 Vaccinat: NOT VACCINATED Second COVID19 Vaccination Samuel: NOT VACCINATED Current Status Advance Directives: No Communicates: Verbally Primary Language: Bulgarian Preferred Spoken Language: Bulgarian Is interpretation needed?: No Past Medical History Surgeries: Tonsillectomy Hypertension Family Medical History Reviewed Nursing Family Hx No Pertinent Family Hx Review of Systems Constitutional: chills, fever, malaise, weakness EENTM: no symptoms reported Respiratory: cough, short of breath Cardiovascular: no symptoms reported Gastrointestinal: nausea Genitourinary: no symptoms reported Musculoskeletal: no symptoms reported Skin: no symptoms reported Psychiatric/Neurological: No Symptoms Reported Physical Exam Physical Exam Vital Signs Vital Signs - First Documented 10/05/21 08:20 Temp 35.9 Pulse 88 Resp 18 B/P (MAP) 127/96 (106) Pulse Ox 96 O2 Delivery Nasal Cannula O2 Flow Rate 2.00 Capillary Refill : Less Than 3 Seconds Height, Weight, BMI Height: '" Weight: lbs. oz. kg; 40.06 BMI Method: General Appearance: No Apparent Distress, Obese HEENT: PERRL/EOMI, Pharynx Normal Neck: Normal Inspection, Supple Respiratory: Lungs Clear, Normal Breath Sounds, No Respiratory Distress Cardiovascular: Regular Rate, Rhythm, No Edema, No Murmur Gastrointestinal: Normal Bowel Sounds, Non Tender, Soft Extremity: Normal Inspection, Non Tender, No Pedal Edema Neurologic/Psychiatric: Alert, Oriented x3, Other (flat affect) Skin: Warm/Dry, Other (facial flushing) Results Results/Procedures Labs Laboratory Tests 10/05/21 08:40 10/06/21 06:07 Patient resulted labs reviewed. Imaging: Reviewed Imaging Report Assessment/Plan Admission Diagnosis Acute respiratory failure due to COVID-19 Admission Status: Inpatient Order (span 2 midnights) Reason for Inpatient Admission: Respiratory failure Assessment and Plan Acute respiratory failure due to COVID-19 Elevated ddimer Morbid obesity COVID+ 10/01, unvaccinated Started on Decadron a/p Actemra 10/05, discussed risks/benefits/EUA use and pateint agreed Ddimer mildly elevated Prophylactic Lovenox CT negative for PE Procal normal, no antibiotics at this time MAT protocol Supplemental oxygen as needed, stable at 6 L Hyperglycemia Likely new onset type 2 diabetes A1C pending Levemir Novolog with meals Sliding scale insulin Anxiety Xanax as needed DVT prophylaxis: Lovenox Diagnosis/Problems Diagnosis/Problems (1) Acute hypoxemic respiratory failure due to COVID-19 Status: Acute (2) Pneumonia due to COVID-19 virus Status: Acute (3) Elevated d-dimer Status: Acute (4) Morbid obesity Status: Chronic (5) Anxiety Status: Acute (6) Hyperglycemia Status: Acute RYLIE MUSTAFA MD Oct 06, 2021 15:56
[2021-10-06] MEDS ORDERED: ALPRAZolam 0.5 MG (XANAX) TAB PO PRN (16:00)
[2021-10-06] MEDS ORDERED: guaiFENesin/DM (ROBITUSSIN DM) 10 ML UDC PO PRN (16:00)
[2021-10-06 20:00] VITALS: BP 103/61
[2021-10-07 05:59] LABS: CALCIUM 9.3 MG/DL (8.5-10.1)
[2021-10-07 06:03] LABS: PHOSPHORUS 3.8 MG/DL (2.3-4.7)
[2021-10-07] MEDS: POTASSIUM CL 10MEQ/50ML IVPB 50 ML IV SCH (06:03)
[2021-10-07] MEDS: KCL 20 MEQ TAB (K-DUR) PO SCH (06:03)
[2021-10-07] MEDS: MAGNESIUM 1 GM/100 ML IVPB 100 ML IV SCH (06:03)
[2021-10-07 06:04] LABS: CREATININE SERUM 0.83 MG/DL (0.60-1.30)
[2021-10-07 06:06] LABS: MAGNESIUM 1.9 MG/DL (1.6-2.4)
[2021-10-07] MEDS: inSUlin ASPART (NovoLOG) 1 UNIT/0.01 ML (CHARGE PER UNIT) SC SCH ×4 (06:12→11:45)
[2021-10-07] MEDS: RT-ALBUTEROL HFA 8.5 GM INHALER IH SCH ×2 (06:50→10:31)
[2021-10-07 07:58] VITALS: BP 115/74
[2021-10-07] MEDS: lisINopril 40 MG (PRINIVIL) TABLET PO SCH (09:01)
[2021-10-07] MEDS: ACYCLOVIR 400 MG TABLET (ZOVIRAX) PO SCH (09:01)
[2021-10-07] MEDS ORDERED: METF-397 PO (12:31)
[2021-10-07] MEDS ORDERED: metFORMIN 500 MG (GLUCOPHAGE) TAB PO ONE (12:45)
[2021-10-07] MEDS ORDERED: ANTACID SUSP 30 ML UDC (MYLANTA) PO PRN (16:15)
--- NOTE | 2021-10-07 16:16 | Discharge Summary ---
Discharge Summary Hospital Course Problems/Dx: (1) Acute hypoxemic respiratory failure due to COVID-19 Status: Acute (2) Pneumonia due to COVID-19 virus Status: Acute (3) Elevated d-dimer Status: Acute (4) Morbid obesity Status: Chronic (5) Anxiety Status: Acute (6) Hyperglycemia Status: Acute Hospital Course Date of Admission: Oct 05, 2021 at 14:35 Admission Diagnosis : Acute respiratory failure due to COVID-19 Family Physician/Provider: ShrutiLocal Physician Date of Discharge: 10/07/21 Discharge Diagnosis: Acute respiratory failure due to COVID-19 Hospital Course: Lory Esposito is a 41 year old male who was admitted with acute respiratory failure due to COVID-19. He was treated with IV steroids and Actemra. He was requiring 6 L supplemental oxygen at the time of admission. His oxygen requirement improved. He was only requiring 2 L continuously and 3 L with activity at the time of discharge. He was set up with home oxygen. His course was complicated by newly diagnosed type II diabetes mellitus. He was started on metformin. He needs to establish care with a primary care physician. He was discharged home in stable condition. Labs and Pending Lab Test: Laboratory Tests 10/06/21 20:22: Glucometer 395H 10/07/21 05:19: Glucometer 275H 10/07/21 05:20: D-Dimer 0.56H, Sodium Level 138, Potassium Level 4.0, Chloride Level 104, Carbon Dioxide Level 23, Anion Gap 11, Blood Urea Nitrogen 20H, Creatinine 0.83, Estimat Glomerular Filtration Rate 102, BUN/Creatinine Ratio 24, Glucose Level 295H, Calcium Level 9.3, Phosphorus Level 3.8, Magnesium Level 1.9, Procalcitonin 0.05 10/07/21 10:37: Glucometer 347H Microbiology 10/05/21 Urine Culture - Final, Complete NO GROWTH 10/05/21 Blood Culture - Preliminary, Resulted No growth Home Meds Active Metformin HCl 500 Mg Tablet 500 Mg PO BID WITH MEALS 30 Days Reported Lisinopril-Hctz 10-12.5 mg Tab (Lisinopril/Hydrochlorothiazide) 1 Each Tablet 1 Each PO DAILY Azithromycin 500 Mg Tablet 500 Mg PO DAILY FILLED 10-02-2021 #4/4 DAY SUPPLY Assessment/Pt Instructions See instructions Discharge Planning: <30 minutes discharge planning Discharge Instructions Discharge Diet: ADA Diet Activity as Tolerated: Yes Discharge Physical Examination Vital Signs Vital Signs Date Time Temp Pulse Resp B/P (MAP) Pulse Ox O2 Delivery O2 Flow Rate FiO2 10/07/21 12:28 84 10/07/21 10:31 95 High Flow N/C 4.00 10/07/21 07:58 36.5 20 115/74 (88) General Appearance: No Apparent Distress, Obese Respiratory: Lungs Clear, Normal Breath Sounds, No Respiratory Distress Cardiovascular: Regular Rate, Rhythm, No Edema, No Murmur Gastrointestinal: Normal Bowel Sounds, Non Tender, Soft Extremity: Normal Inspection, Non Tender, No Pedal Edema Skin: Normal Color, Warm/Dry Neurologic/Psychiatric: Alert, Oriented x3, No Motor/Sensory Deficits, Normal Mood/Affect Allergies: Coded Allergies: Penicillins (Verified Allergy, Severe, Anaphylaxis, 10/01/21) Iodine and Iodide Containing Produc (Verified Allergy, Intermediate, 10/01/21) swelling Discharge Summary Date of Admission Oct 05, 2021 at 14:35 Date of Discharge Discharge Date: Oct 07, 2021 Discharge Time: 16:15 Admission Diagnosis Acute respiratory failure due to COVID-19 Discharge Diagnosis Acute respiratory failure due to COVID-19 (1) Acute hypoxemic respiratory failure due to COVID-19 Status: Acute (2) Pneumonia due to COVID-19 virus Status: Acute (3) Elevated d-dimer Status: Acute (4) Morbid obesity Status: Chronic (5) Anxiety Status: Acute (6) T2DM (type 2 diabetes mellitus) Status: Acute Qualifiers: Qualified Codes: E11.9 - Type 2 diabetes mellitus without complications APARNA MUSTAFA MD Oct 07, 2021 16:15
[2021-10-08] MEDS ORDERED: metFORMIN 500 MG (GLUCOPHAGE) TAB PO SCH (07:00)
[2021-10-08] MEDS ORDERED: lisINopril 10 MG (PRINIVIL) TABLET PO SCH (09:00)
== END 2021-10-07 15:50 | disposition home or self-care (01) | DRG 177 ==
LOC: EDUNIT# 08:20 → ER FS 08:22 → 4TH 14:35
PROVIDERS: ADMIT Internal Medicine; ATTEND Internal Medicine
PROC: XW033H5 Introduction of Tocilizumab into Peripheral Vein, Percutaneous Approach, New Technology Group 5 (ICD-10-PCS; principal; 2021-10-05)
PROC: 5A0945A Assistance with Respiratory Ventilation, 24-96 Consecutive Hours, High Flow/Velocity Cannula (ICD-10-PCS; 2021-10-05)
DX: U07.1 COVID-19 (principal); J12.82 Pneumonia due to coronavirus disease 2019; J96.01 Acute respiratory failure with hypoxia; Z68.41 Body mass index [BMI] 40.0-44.9, adult; E11.65 Type 2 diabetes mellitus with hyperglycemia; I10 Essential (primary) hypertension; E66.01 Morbid (severe) obesity due to excess calories; F41.9 Anxiety disorder, unspecified; Z79.899 Other long term (current) drug therapy; Z79.84 Long term (current) use of oral hypoglycemic drugs
CPT/HCPCS: 36415; 71045; 80048; 80053; 81000; 82947; 83036; 83605; 83735; 84100; 84145; 85007; 85025; 85027; 85379; 85610; 85730; 86141; 87040; 87088; 93005; 94640; 94761

== ENCOUNTER 2021-10-09 14:32 | Emergency (ER) | payer OTHER ==
[~2021-10-09] VITALS: Ht 187 cm; Wt 113.0 kg
[~2021-10-09 14:32] MED LIST changes: +METF-397 PO
[2021-10-09 14:52] LABS: HEMATOCRIT 46 % (40-54); MEAN CORPUSCULAR HEMOGLOBIN 28 pg (25-34); MEAN CORPUSCULAR HGB CONC 35 g/dL (32-36); MEAN CORPUSCULAR VOLUME 82 fL (80-99); WHITE BLOOD COUNT 8.2 10^3/uL (4.3-11.0)
[2021-10-09 14:53] LABS: BASOPHILS % (AUTO) 1 % (0-10); EOSINOPHILS # (AUTO) 0.2 10^3/uL (0.0-0.3); EOSINOPHILS % (AUTO) 3 % (0-10); LYMPHOCYTES # (AUTO) 3.3 X 10^3 (1.0-4.0); LYMPHOCYTES % (AUTO) 40 % (12-44); MEAN PLATELET VOLUME 9.8 fL (9.0-12.2); MONOCYTES # (AUTO) 0.5 X 10^3 (0.0-1.0); MONOCYTES % (AUTO) 7 % (0-12); NEUTROPHILS # (AUTO) 3.2 X 10^3 (1.8-7.8); NEUTROPHILS % (AUTO) 39 % (42-75); PLATELET COUNT 461 10^3/uL (130-400)
--- NOTE | 2021-10-09 14:54 | ED Chest Pain ---
General Chief Complaint: General Problems/Pain Stated Complaint: DIAHRREA, LUNG PAIN, COVID+ Source: patient, family Exam Limitations: no limitations History of Present Illness Date Seen by Provider: Oct 09, 2021 Time Seen by Provider: 14:36 Initial Comments 41-year-old male with past medical history of hypertension, recently diagnosed diabetes, and recent discharge from the hospital due to respiratory failure from COVID coming in due to chest pain. First being symptomatic for COVID around September 26 with this positive test on October 01. Was discharged a couple days ago from the hospital due to respiratory failure. Initially was on 6 L oxygen in the hospital and was discharged on 2 L when he was resting and 3 L with activity. He has continued this at home. He noticed some the discharge paperwork if he has any chest discomfort or diarrhea he should come in to the hospital. He said for the past couple hours the middle of his chest has been throbbing constantly with nothing making it better or worse. He says he believes it is anxiety, and he is concerned since he got COVID he is worried he is going to all the time, and is making it difficult to sleep. Denies any previous history of DVT or PE. Denies any lower extremity swelling or pain. Denies any hemoptysis, recent surgery, recent long travel, and his dyspnea has been improving steadily. No new fevers. Says he has had some nonbloody diarrhea for the past day which is new. Allergies and Home Medications Allergies Coded Allergies: Penicillins (Verified Allergy, Severe, Anaphylaxis, 10/01/21) Iodine and Iodide Containing Produc (Verified Allergy, Intermediate, 10/01/21) swelling Patient Home Medication List Home Medication List Reviewed: Yes Azithromycin (Azithromycin) 500 Mg Tablet, 500 MG PO DAILY, (Reported) Entered as Reported by: AARON MCKINNEY on 10/06/21 1421 Lisinopril/Hydrochlorothiazide (Lisinopril-Hctz 10-12.5 mg Tab) 1 Each Tablet, 1 EACH PO DAILY, (Reported) Entered as Reported by: AARON MCKINNEY on 10/06/21 1421 Metformin HCl (Metformin HCl) 500 Mg Tablet, 500 MG PO BID WITH MEALS Prescribed by: APARNA MUSTAFA on 10/07/21 1231 Discontinued Medications Azithromycin (Azithromycin) 500 Mg Tablet, 500 MG PO DAILY Discontinued Reason: Duplicate Order Prescribed by: DESIREE SILVA on 10/01/212340 Lisinopril/Hydrochlorothiazide (Lisinopril-Hctz 10-12.5 mg Tab) 1 Each Tablet, 1 EACH PO DAILY Discontinued Reason: Duplicate Order Prescribed by: DESIREE SILVA on 10/01/212340 Review of Systems Review of Systems Constitutional: No chills, No fever EENTM: No Blurred Vision Respiratory: Denies Cough, Denies Shortness of Air Cardiovascular: Chest Pain Gastrointestinal: Denies Abdominal Pain; Diarrhea; Denies Nausea Genitourinary: Denies Burning Musculoskeletal: No joint pain Skin: no symptoms reported Psychiatric/Neurological: Anxiety Endocrine: No Symptoms Reported Hematologic/Lymphatic: No Symptoms Reported All Other Systems Reviewed Negative Unless Noted: Yes Past Gsoaltj-Fbtkzw-Ulysnz Hx Patient Social History Tobacco Use?: No Immunizations Up To Date First/Initial COVID19 Vaccinat: NOT VACCINATED Second COVID19 Vaccination Samuel: NOT VACCINATED Past Medical History Surgery/Hospitalization HX: Hypertension Surgeries: Yes Tonsillectomy Respiratory: No Cardiac: Yes Hypertension Neurological: No Genitourinary: No Gastrointestinal: No Musculoskeletal: No Endocrine: No HEENT: No Psychosocial: No Family Medical History No Pertinent Family Hx Physical Exam Vital Signs Vital Signs - First Documented 10/09/21 14:52 Temp 35.8 Pulse 102 Resp 20 B/P (MAP) 133/91 (105) Pulse Ox 98 O2 Delivery Room Air Capillary Refill : Height, Weight, BMI Height: '" Weight: lbs. oz. kg; 40.06 BMI Method: General Appearance: No Apparent Distress, WD/WN HEENT: PERRL/EOMI, Normal ENT Inspection, Pharynx Normal Neck: Full Range of Motion, Normal Inspection, Non Tender, Supple Respiratory: Chest Non Tender, Lungs Clear, Normal Breath Sounds, No Accessory Muscle Use, No Respiratory Distress Cardiovascular: Regular Rate, Rhythm, No Edema, Normal Peripheral Pulses Gastrointestinal: Normal Bowel Sounds, Non Tender, Soft; No Distended, No Guarding Extremity: Normal Capillary Refill, Normal Inspection, Normal Range of Motion, Non Tender, No Calf Tenderness, No Pedal Edema Neurologic/Psychiatric: Alert, No Motor/Sensory Deficits, Normal Mood/Affect Skin: Normal Color, Warm/Dry Lymphatic: No Adenopathy Progress/Results/Core Measures Results/Orders Lab Results Laboratory Tests Test 10/09/21 14:45 Range/Units White Blood Count 8.2 4.3-11.0 10^3/uL Red Blood Count 5.66 H 4.30-5.52 10^6/uL Hemoglobin 16.0 13.3-17.7 g/dL Hematocrit 46 40-54 % Mean Corpuscular Volume 82 80-99 fL Mean Corpuscular Hemoglobin 28 25-34 pg Mean Corpuscular Hemoglobin Concent 35 32-36 g/dL Red Cell Distribution Width 12.3 10.0-14.5 % Platelet Count 461 H 130-400 10^3/uL Mean Platelet Volume 9.8 9.0-12.2 fL Immature Granulocyte % (Auto) 11 % Neutrophils (%) (Auto) 39 L 42-75 % Lymphocytes (%) (Auto) 40 12-44 % Monocytes (%) (Auto) 7 0-12 % Eosinophils (%) (Auto) 3 0-10 % Basophils (%) (Auto) 1 0-10 % Neutrophils # (Auto) 3.2 1.8-7.8 X 10^3 Lymphocytes # (Auto) 3.3 1.0-4.0 X 10^3 Monocytes # (Auto) 0.5 0.0-1.0 X 10^3 Eosinophils # (Auto) 0.2 0.0-0.3 10^3/uL Basophils # (Auto) 0.0 0.0-0.1 10^3/uL Immature Granulocyte # (Auto) 0.9 H 0.0-0.1 10^3/uL Sodium Level 138 135-145 MMOL/L Potassium Level 4.1 3.6-5.0 MMOL/L Chloride Level 101 98-107 MMOL/L Carbon Dioxide Level 24 21-32 MMOL/L Anion Gap 13 5-14 MMOL/L Blood Urea Nitrogen 18 7-18 MG/DL Creatinine 0.69 0.60-1.30 MG/DL Estimat Glomerular Filtration Rate 126 BUN/Creatinine Ratio 26 Glucose Level 257 H 70-105 MG/DL Calcium Level 9.3 8.5-10.1 MG/DL Corrected Calcium 9.4 8.5-10.1 MG/DL Total Bilirubin 0.5 0.1-1.0 MG/DL Aspartate Amino Transf (AST/SGOT) 61 H 5-34 U/L Alanine Aminotransferase (ALT/SGPT) 93 H 0-55 U/L Alkaline Phosphatase 75 40-136 U/L Troponin I < 0.30 <0.30 NG/ML Total Protein 6.8 6.4-8.2 GM/DL Albumin 3.9 3.2-4.5 GM/DL My Orders Orders - SIENA LOWE MD Cbc With Automated Diff (10/09/21 14:47) Chest 1 View Ap/Pa Only (10/09/21 14:47) Ekg Tracing (10/09/21 14:47) Comprehensive Metabolic Panel (10/09/21 14:47) O2 (10/09/21 14:47) Monitor-Rhythm Ecg Trace Only (10/09/21 14:47) Aspirin Chewable Tablet (Baby Aspirin Ch (10/09/21 15:00) Ed Iv/Invasive Line Start (10/09/21 14:47) Troponin I Fs (10/09/21 14:47) Medications Given in ED Current Medications Medications Dose Ordered Sig/Natalie Route Start Time Stop Time Status Last Admin Dose Admin Aspirin 324 mg ONCE ONCE PO 10/09/21 15:00 10/09/21 15:01 DC 10/09/21 15:10 324 MG Vital Signs/I&O 10/09/21 14:52 Temp 35.8 Pulse 102 Resp 20 B/P (MAP) 133/91 (105) Pulse Ox 98 O2 Delivery Room Air Progress Progress Note : Progress Note 41-year-old male with above history coming in due to chest pain. ABCs were intact and vitals were stable on presentation. EKG without any acute ischemic changes. An IV was placed and basic labs including cardiac markers obtained. Chest x-ray ordered as well. I was able to take the patient off the oxygen while in the emergency department because at rest on the 2 L he was satting 100%. He hovered between 95 to 99% on room air. He says he has been keeping it off most of the time at home, but that he will desat still sometimes with activity so he tends to wear it when he is moving around. This is a significant improvement since discharge a couple days ago which is reassuring. Labs significant for undetectable troponin. Chest x-ray ordered and interpreted by me showing significant improvement from his prior during his admission with COVID but still has some focal opacities bilaterally. No pneumothorax, cardiac silhouette is stable in appearance. I believe the patient is stable for discharge with outpatient follow-up. He was sent home with strict return precautions peer Initial ECG Impression Date: Oct 09, 2021 Initial ECG Impression Time: 14:38 Initial ECG Rate: 104 Initial ECG Rhythm: S.Tach Comment Narrow QRS, borderline left axis deviation, no significant ST changes or T wave abnormalities accounting for the baseline wander Departure Impression Primary Impression: Chest pain Qualified Codes: R07.9 - Chest pain, unspecified Additional Impression: COVID-19 Disposition: 01 HOME, SELF-CARE Condition: Stable Departure-Patient Inst. Decision time for Depature: 15:33 Referrals: NO,LOCAL PHYSICIAN (PCP/Family) Primary Care Physician Patient Instructions: Chest Pain (DC) Add. Discharge Instructions: You were seen in the emergency department for chest pain. Your lungs look a lot better on your chest x-ray compared to when you were in the hospital. Your oxygen also is a lot better. If your oxygen is more than 92% then you can stay off of the oxygen. You do not want it to be the 100% as this can cause problems over time. SIENA LOWE MD Oct 09, 2021 14:54
[2021-10-09] MEDS ORDERED: ASPIRIN 81 MG CHEW (CHILDREN'S ASA) PO ONE (15:00)
--- NOTE | 2021-10-09 15:07 | Diagnostic Imaging Report ---
EXAMINATION: Chest 1 view. HISTORY: Chest pain. COMPARISON: 10/06/2021. FINDINGS: Scattered opacities are seen throughout the lungs. No large pleural effusion or pneumothorax is seen. The cardiomediastinal silhouette is prominent. No acute osseous abnormality is seen. IMPRESSION: 1. Scattered focal opacities throughout the lungs which may represent infection and/or edema. 2. Cardiomegaly. Dictated by: Dictated on workstation # [id number]
[2021-10-09 15:18] LABS: CREATININE SERUM 0.69 MG/DL (0.60-1.30); POTASSIUM 4.1 MMOL/L (3.6-5.0)
[2021-10-09 15:19] LABS: ALBUMIN 3.9 GM/DL (3.2-4.5); BILIRUBIN,TOTAL 0.5 MG/DL (0.1-1.0); CALCIUM 9.3 MG/DL (8.5-10.1); TOTAL PROTEIN 6.8 GM/DL (6.4-8.2)
[2021-10-09 15:35] VITALS: BP 132/78
[2021-10-09 15:48] LABS: BAND NEUTROPHILS 1 %; EOSINOPHILS % (MANUAL) 1 %; LYMPHOCYTES % (MANUAL) 45 %; MONOCYTES % (MANUAL) 4 %; NEUTROPHILS % (MANUAL) 49 %
== END 2021-10-09 15:40 | disposition home or self-care (01) ==
LOC: EDUNIT# 14:32 → ER FS 14:34
DX: U07.1 COVID-19 (principal); I10 Essential (primary) hypertension; E11.9 Type 2 diabetes mellitus without complications
CPT/HCPCS: 36415; 71045; 80053; 84484; 85007; 85025; 85027; 93005

== ENCOUNTER → 2022-06-15 | Outpatient (CLI) | payer OTHER ==
[2022-06-15 14:25] LABS: CALCIUM 9.1 MG/DL (8.5-10.1); CREATININE SERUM 0.9 MG/DL (0.60-1.30); POTASSIUM 3.8 MMOL/L (3.6-5.0)
[2022-06-15 14:26] LABS: ALBUMIN 4.2 GM/DL (3.2-4.5); BILIRUBIN,TOTAL 0.7 MG/DL (0.1-1.0); TOTAL PROTEIN 6.9 GM/DL (6.4-8.2)
== END ==
LOC: LAB FS 13:11
PROVIDERS: ATTEND Internal Medicine Cardiovascular Disease
DX: E78.2 Mixed hyperlipidemia (principal); I25.10 Atherosclerotic heart disease of native coronary artery without angina pectoris; I10 Essential (primary) hypertension
CPT/HCPCS: 36415; 80053; 80061

== ENCOUNTER → 2022-06-26 | Outpatient (CLI) | payer OTHER ==
[~2022-06-26] MED LIST changes: +CATHETER FLUSH 10 ML SYR IVP PRN; +REGADENOSON 0.4 MG/5 ML SYR (LEXISCAN) IV ONE
[2022-06-26 10:00] VITALS: BP 128/87
--- NOTE | 2022-06-26 12:12 | Cardiology Stress Test Report ---
Stress Test Report Date of Procedure/Referring: Date of Procedure: Jun 26, 2022 PCP Garima Pastor MD Admitting Physician Admitting Physician: Attending Physician: Jin Thompson MD Indications: HTN Baseline Heart Rate: 92 Baseline Blood Pressure: Blood Pressure Systolic: 128 Blood Pressure Diastolic: 87 Baseline Vitals Vital Signs Date Time Temp Pulse Resp B/P (MAP) Pulse Ox O2 Delivery O2 Flow Rate FiO2 06/26/22 10:00 105 128/87 (101) Baseline EKG: Baseline EKG: NSR Summary After explaining the procedure to the patient, he signed a consent and then brought to the stress nuclear laboratory. Patient received 0.4 mg Lexiscan for stress test, ECG, heart rate and blood pressure were monitored continuously. Resting and stress dose of radio tracer were injected, imaging was acquired and reviewed in short axis, horizontal long axis and vertical long axis views. TID: 0.96 SSS: 0 SDS: 0 EF: 51 1. Patient was unable to exercise beyond 4 minutes and 30 seconds on standard [place] protocol achieving only 75% of maximum expected heart rate, test was terminated and converted to Lexiscan Myoview stress test 2. Patient tolerated Lexiscan well 3. Diaphragmatic attenuation with decreased uptake at the inferior apical segment and apex with no significant reversibility, overall there is no significant ischemia or infarction on SPECT images 4. Normal left ventricular size, ejection fraction 51% JIN THOMPSON MD Jun 26, 2022 12:12
== END ==
LOC: CARD 08:01
PROVIDERS: ATTEND Internal Medicine Cardiovascular Disease
DX: I10 Essential (primary) hypertension (principal); I25.10 Atherosclerotic heart disease of native coronary artery without angina pectoris
CPT/HCPCS: 78452; 93017

== ENCOUNTER → 2022-06-29 | Outpatient (CLI) | payer OTHER ==
[~2022-06-29] MED LIST changes: -CATHETER FLUSH 10 ML SYR IVP PRN; -REGADENOSON 0.4 MG/5 ML SYR (LEXISCAN) IV ONE
== END ==
LOC: CARDFS 14:06
PROVIDERS: ATTEND Internal Medicine Cardiovascular Disease
DX: I10 Essential (primary) hypertension (principal); I25.10 Atherosclerotic heart disease of native coronary artery without angina pectoris
CPT/HCPCS: 93306

== ENCOUNTER 2022-09-13 20:44 | Emergency (ER) | payer OTHER ==
[~2022-09-13] VITALS: Ht 180 cm; Wt 130.2 kg
[~2022-09-13 20:44] MED LIST changes: +ACET-93 PO; +IBUP-1780 PO; +METH4TAB PO; +morphine PO
[2022-09-13] MEDS ORDERED: NS IV 1000 ML 1,000 ML IV STA (21:12)
[2022-09-13] MEDS ORDERED: KETOROLAC 15 MG/ML VIAL IVP STA (21:12)
--- NOTE | 2022-09-13 21:29 | ED General ---
General Chief Complaint: Cough/Cold/Flu Symptoms Stated Complaint: SOA,COUGH,BACK PAIN Nursing Triage Note: Pt presents ambulatory to ER with c/o back pain and shortness of breath x 3 days. Pt states that today he's become congested, and states he decided to come to the ER due to increased heart rate on home pulse ox. Source of Information: Patient, Spouse History of Present Illness Date Seen by Provider: Sep 13, 2022 Time Seen by Provider: 20:49 Initial Comments 42-year-old male presenting with complaints of shortness of breath for the last 3 days with congestion. Today he was feeling worse and had not been up very much throughout the day. He has not been drinking very much today either. Tonight they noticed that his heart rate was increased into the 120s and became concerned so they brought him to the emergency department. He has not been seen at urgent care [facility] clinic for any testing for influenza or COVID. He has not tried taking anything for his pain in the lower part of his chest and ribs in the back. He denies any trauma or injury and states he is only had a mild cough. He did not feel like he was running a fever at home. He has diabetes but does not take medicine for it and his sugar tonight was 301. Normally he is 200-2 60. Timing/Duration: 2-3 Days Severity: Moderate Modifying Factors: worse with Movement (increased back pain with movement) Associated Systoms: Chest Pain (lower posterior chest tender to palpation), Cough; No Diaphoresis, No Fever/Chills; Headaches; No Loss of Appetite; Malaise; No Nausea/Vomiting, No Rash, No Seizure; Shortness of Air; No Syncope, No Weakness Allergies and Home Medications Allergies Coded Allergies: Penicillins (Verified Allergy, Severe, Anaphylaxis, 10/01/21) Iodine and Iodide Containing Produc (Verified Allergy, Intermediate, 10/01/21) swelling amoxicillin (Unverified Allergy, Unknown, 08/25/22) Patient Home Medication List Home Medication List Reviewed: Yes Acetaminophen (Acetaminophen) 500 Mg Tablet, 1,000 MG PO Q8H Prescribed by: HODAN REYNOLDS on 06/29/19 2227 Azithromycin (Azithromycin) 500 Mg Tablet, 500 MG PO DAILY, (Reported) Entered as Reported by: AARON MCKINNEY on 10/06/21 1421 Ibuprofen (Ibuprofen) 800 Mg Tablet, 800 MG PO Q8H PRN for PAIN Prescribed by: HODAN REYNOLDS on 06/29/192226 Lisinopril/Hydrochlorothiazide (Lisinopril-Hctz 10-12.5 mg Tab) 1 Each Tablet, 1 EACH PO DAILY, (Reported) Entered as Reported by: AARON MCKINNEY on 10/06/21 1421 Metformin HCl (Metformin HCl) 500 Mg Tablet, 500 MG PO BID WITH MEALS Prescribed by: APARNA MUSTAFA on 10/07/21 1231 Methylprednisolone (Medrol) 4 Mg Tab.ds.pk, 4 MG PO UD Prescribed by: HODAN REYNOLDS on 06/29/192229 [morphine] , 15 MG PO Q6H Prescribed by: HODAN REYNOLDS on 06/29/192229 Review of Systems Review of Systems Constitutional: No chills, No fever; malaise EENTM: nose congestion Respiratory: cough, short of breath Cardiovascular: chest pain (lower posterior chest/rib pain), palpitations Gastrointestinal: no symptoms reported Genitourinary: no symptoms reported Musculoskeletal: see HPI Skin: No rash Psychiatric/Neurological: Headache Hematologic/Lymphatic: Denies Blood Clots Past Soouhdd-Gxglcn-Gwkcbx Hx Patient Social History Tobacco Use?: No Substance use?: No Alcohol Use?: No Immunizations Up To Date First/Initial COVID19 Vaccinat: NOT VACCINATED Second COVID19 Vaccination Samuel: NOT VACCINATED Third COVID19 Vaccination Date: NOT VACCINATED Past Medical History Surgery/Hospitalization HX: Hypertension, Diabetes Mellitus Surgeries: Yes Tonsillectomy Respiratory: No Cardiac: Yes Hypertension Neurological: No Genitourinary: No Gastrointestinal: No Musculoskeletal: No Endocrine: No HEENT: No Psychosocial: No Family Medical History No Pertinent Family Hx Physical Exam Vital Signs Vital Signs - First Documented 09/13/22 09/13/22 20:52 21:33 Temp 38.0 Pulse 120 Resp 18 B/P (MAP) 152/97 (115) O2 Delivery Room Air Capillary Refill : Less Than 3 Seconds Height, Weight, BMI Height: '" Weight: lbs. oz. kg; 40.00 BMI Method: General Appearance: No Apparent Distress, Obese HEENT: PERRL/EOMI, TMs Normal, Pharynx Normal, Moist Mucous Membranes Neck: Full Range of Motion, Normal Inspection, Non Tender, Supple Respiratory: No Chest Non Tender (tender to palpation lower posterior rib/chest); Lungs Clear, Normal Breath Sounds, No Accessory Muscle Use, No Respiratory Distress Cardiovascular: Normal Peripheral Pulses, Tachycardia Gastrointestinal: Normal Bowel Sounds, No Pulsatile Mass, Non Tender, Soft Rectal: Deferred Back: No CVA Tenderness Extremity: Normal Capillary Refill, Normal Inspection, No Pedal Edema Neurologic/Psychiatric: Alert, Oriented x3, 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 Norm as Tested Skin: Normal Color, Warm/Dry; No Rash Focused Exam Lactate Level 09/13/22 21:15: Lactic Acid Level 3.31*H Lactic Acid Level Laboratory Tests Test 09/13/22 21:15 Lactic Acid Level 3.31 MMOL/L (0.50-2.00) *H Progress/Results/Core Measures Suspected Sepsis SIRS Temperature: Pulse: 120 Respiratory Rate: 18 Laboratory Tests 09/13/22 21:15: White Blood Count 6.7 Blood Pressure 152 /97 Mean: 115 09/13/22 21:15: Lactic Acid Level 3.31*H Laboratory Tests 09/13/22 21:15: Creatinine 0.86, Platelet Count 213, Total Bilirubin 0.6 Results/Orders Lab Results Laboratory Tests Test 09/13/22 21:15 09/13/22 22:15 Range/Units White Blood Count 6.7 4.3-11.0 10^3/uL Red Blood Count 4.98 4.30-5.52 10^6/uL Hemoglobin 14.7 13.3-17.7 g/dL Hematocrit 42 40-54 % Mean Corpuscular Volume 84 80-99 fL Mean Corpuscular Hemoglobin 30 25-34 pg Mean Corpuscular Hemoglobin Concent 35 32-36 g/dL Red Cell Distribution Width 11.8 10.0-14.5 % Platelet Count 213 130-400 10^3/uL Mean Platelet Volume 10.2 9.0-12.2 fL Immature Granulocyte % (Auto) 1 % Neutrophils (%) (Auto) 74 42-75 % Lymphocytes (%) (Auto) 16 12-44 % Monocytes (%) (Auto) 7 0-12 % Eosinophils (%) (Auto) 1 0-10 % Basophils (%) (Auto) 1 0-10 % Neutrophils # (Auto) 4.9 1.8-7.8 10^3/uL Lymphocytes # (Auto) 1.1 1.0-4.0 10^3/uL Monocytes # (Auto) 0.5 0.0-1.0 10^3/uL Eosinophils # (Auto) 0.1 0.0-0.3 10^3/uL Basophils # (Auto) 0.0 0.0-0.1 10^3/uL Immature Granulocyte # (Auto) 0.1 0.0-0.1 10^3/uL Sodium Level 135 135-145 MMOL/L Potassium Level 3.9 3.6-5.0 MMOL/L Chloride Level 100 98-107 MMOL/L Carbon Dioxide Level 23 21-32 MMOL/L Anion Gap 12 5-14 MMOL/L Blood Urea Nitrogen 11 7-18 MG/DL Creatinine 0.86 0.60-1.30 MG/DL Estimat Glomerular Filtration Rate 110 BUN/Creatinine Ratio 13 Glucose Level 276 H 70-105 MG/DL Lactic Acid Level 3.31 *H 0.50-2.00 MMOL/L Calcium Level 9.1 8.5-10.1 MG/DL Corrected Calcium 8.9 8.5-10.1 MG/DL Total Bilirubin 0.6 0.1-1.0 MG/DL Aspartate Amino Transf (AST/SGOT) 22 5-34 U/L Alanine Aminotransferase (ALT/SGPT) 29 0-55 U/L Alkaline Phosphatase 76 40-136 U/L C-Reactive Protein 3.30 H <0.50 MG/DL Total Protein 6.9 6.4-8.2 GM/DL Albumin 4.3 3.2-4.5 GM/DL Influenza Type A (RT-PCR) Not Detected Not Detecte Influenza Type B (RT-PCR) Not Detected Not Detecte SARS-CoV-2 RNA (RT-PCR) Detected H Not Detecte Urine Color YELLOW Urine Clarity CLEAR Urine pH 6.0 5-9 Urine Specific [place] 1.020 1.016-1.022 Urine Protein NEGATIVE NEGATIVE Urine Glucose (UA) 3+ H NEGATIVE Urine Ketones NEGATIVE NEGATIVE Urine Nitrite NEGATIVE NEGATIVE Urine Bilirubin NEGATIVE NEGATIVE Urine Urobilinogen 0.2 < = 1.0 MG/DL Urine Leukocyte Esterase NEGATIVE NEGATIVE Urine RBC (Auto) NEGATIVE NEGATIVE Urine RBC NONE /HPF Urine WBC RARE /HPF Urine Squamous Epithelial Cells NONE /HPF Urine Crystals NONE /LPF Urine Bacteria NEGATIVE /HPF Urine Casts NONE /LPF Urine Mucus SMALL H /LPF Urine Culture Indicated NO My Orders Orders - DESIREE SILVA MD Cbc With Automated Diff (09/13/22 21:12) Comprehensive Metabolic Panel (09/13/22 21:12) Blood Culture (09/13/22 21:12) Ua Culture If Indicated (09/13/22 21:12) Chest Pa/Lat (2 View) (09/13/22 21:12) Ed Iv/Invasive Line Start (09/13/22 21:12) Crp Fs (09/13/22 21:12) Lactic Acid Analyzer (09/13/22 21:12) Covid 19 Inhouse Test (09/13/22 21:12) Influenza A And B By Pcr (09/13/22 21:12) Isolation Central Supply Req (09/13/22 21:12) Ns Iv 1000 Ml (Sodium Chloride 0.9%) (09/13/22 21:12) Ketorolac Injection (Toradol Injection) (09/13/22 21:12) Lactated Ringers (Lr 1000 Ml Iv Solution (09/13/22 21:55) Rx-Nirmatrelvir/Ritonavir(Eua) (Rx-Paxlo (09/13/22 22:29) Vital Signs/I&O 09/13/22 09/13/22 20:52 21:33 Temp 38.0 Pulse 120 Resp 18 B/P (MAP) 152/97 (115) O2 Delivery Room Air Capillary Refill : Less Than 3 Seconds Blood Pressure Mean: 115 Progress Note #1: Progress Note check labs, chest xray, nasal swab to look for covid/influenza. Give NS 1 L IVF bolus for hydration. Toradol 15 mg IV for posterior chest pain. Progress Note #2: Time: 21:44 Progress Note CXR without effusion or infiltrate. Awaiting labs and swabs. Progress Note #3: Time: 21:58 Progress Note CBC without elevation of WBC. Chemistry shows increased glucose to 276, Lactic acid 3.31, CRP 3.3. Influenza negative but positive for Covid. HR improving with hydration. Elevated lactic acid may be due to infection as well as dehydration. He does not have end organ dysfunction, elevated WBC count or hypoxia or hypotension to indicate sepsis. Will give 1 L of LR to try and help more with hydration in addition to the NS bolus. Will discuss option of starting him on Paxlovid since he has hypertension and diabetes. Will defer repeat Lactic acid testing since he does not have other signs of sepsis and this is likely more to dehydration than sepsis. Progress Note #4: Progress Note Given handout about Paxlovid for his review as it is a EUA medicine. Reviewed his home medication list and advised to hold Atorvastatin and Tadalafil while taking the medicine. Advised it does not treat infection like an antibiotic kills bacterial infection but rather weakens the virus so he can fight it off better and hopefully avoid admit and worsening condition. Also counseled that he might consider holding the HCTZ while he is trying to increase hydration as it can dehydrate him with its diuretic effect. After reviewing the handout and answering questions as well as discussing the medicine and side effects they wanted to try taking the medicine. Will let 2nd bag of IVF finish and then discharge to home. Start him on Paxlovid from here. UA came back showing glucose in urine but no ketones for DKA or signs of infection. Diagnostic Imaging Diagonstic Imaging: Xray Plain Films/CT/US/NM/MRI: chest Comments NAME: [facility]E [facility] REC#: [id number] PT STATUS: REG ER : 1980 PHYSICIAN: DESIREE SILVA MD ADMIT DATE: 09/13/22/ER FS Draft Date of Exam:09/13/22 CHEST PA/LAT (2 VIEW) INDICATION: Cough, short of breath, low posterior chest pain COMPARISON: 10/09/2021. FINDINGS: Frontal and lateral views of the chest demonstrate normal heart size and pulmonary vascularity. The lungs are clear. There are no signs of infiltrate, pleural effusions or pneumothoraces. The visualized osseous structures show no acute abnormalities. IMPRESSION: No acute process. No signs of infiltrates, effusions or pneumothoraces. Dictated on workstation # [id number] Dict: 09/13/[id number] Trans: 09/13/222139 MERGED WITH [facility] [id number] Interpreted by: EREN WAY MD Electronically signed by: Reviewed: Reviewed by Me Departure Impression Primary Impression: COVID-19 Additional Impressions: Upper respiratory infection with cough and congestion Tachycardia Dehydration Disposition: HOME, SELF-CARE Condition: Stable Departure-Patient Inst. Decision time for Depature: 22:29 Referrals: MASHA RAY MD (PCP/Family) Primary Care Physician Patient Instructions: COVID-19 ED, Dehydration, Adult ED Add. Discharge Instructions: Do NOT take your Atorvastatin (Lipitor) or your Tadalafil (Cialis) for the next 5 days while you take the Paxlovid. Consider holding your Hydrochlorothiazide for the next few days while you are trying to increase your hydration. This is one of your blood pressure pills and it is a diuretic or water pill so it can dehydrate you some. Drink extra fluids to help with hydration. Follow up with clinic if not improving or return if having worsening symptoms or increased work of breathing. All discharge instructions reviewed with patient and/or family. Voiced understanding. DESIREE SILVA MD Sep 13, 2022 21:29
[2022-09-13 21:31] LABS: BASOPHILS % (AUTO) 1 % (0-10); EOSINOPHILS # (AUTO) 0.1 10^3/uL (0.0-0.3); EOSINOPHILS % (AUTO) 1 % (0-10); HEMATOCRIT 42 % (40-54); HEMOGLOBIN 14.7 g/dL (13.3-17.7); LYMPHOCYTES # (AUTO) 1.1 10^3/uL (1.0-4.0); LYMPHOCYTES % (AUTO) 16 % (12-44); MEAN CORPUSCULAR HEMOGLOBIN 30 pg (25-34); MEAN CORPUSCULAR HGB CONC 35 g/dL (32-36); MEAN CORPUSCULAR VOLUME 84 fL (80-99); MEAN PLATELET VOLUME 10.2 fL (9.0-12.2); MONOCYTES # (AUTO) 0.5 10^3/uL (0.0-1.0); MONOCYTES % (AUTO) 7 % (0-12); NEUTROPHILS # (AUTO) 4.9 10^3/uL (1.8-7.8); NEUTROPHILS % (AUTO) 74 % (42-75); PLATELET COUNT 213 10^3/uL (130-400); WHITE BLOOD COUNT 6.7 10^3/uL (4.3-11.0)
--- NOTE | 2022-09-13 21:40 | Diagnostic Imaging Report ---
INDICATION: Cough, short of breath, low posterior chest pain COMPARISON: 10/09/2021. FINDINGS: Frontal and lateral views of the chest demonstrate normal heart size and pulmonary vascularity. The lungs are clear. There are no signs of infiltrate, pleural effusions or pneumothoraces. The visualized osseous structures show no acute abnormalities. IMPRESSION: No acute process. No signs of infiltrates, effusions or pneumothoraces. Dictated by: Dictated on workstation # [id number]
[2022-09-13 21:52] LABS: POTASSIUM 3.9 MMOL/L (3.6-5.0)
[2022-09-13 21:53] LABS: ALBUMIN 4.3 GM/DL (3.2-4.5); BILIRUBIN,TOTAL 0.6 MG/DL (0.1-1.0); CALCIUM 9.1 MG/DL (8.5-10.1); CREATININE SERUM 0.86 MG/DL (0.60-1.30); TOTAL PROTEIN 6.9 GM/DL (6.4-8.2)
[2022-09-13] MEDS ORDERED: LACTATED RINGERS 1,000 ML IV STA (21:55)
[2022-09-13 22:26] LABS: BILIRUBIN,URINE NEGATIVE (NEGATIVE); CLARITY,URINE CLEAR; COLOR,URINE YELLOW; GLUCOSE, URINE (UA) 3+ (NEGATIVE); KETONES,URINE NEGATIVE (NEGATIVE); LEUKOCYTE ESTERASE ,URINE NEGATIVE (NEGATIVE); NITRITE,URINE NEGATIVE (NEGATIVE); PROTEIN,URINE NEGATIVE (NEGATIVE)
[2022-09-13] MEDS ORDERED: RX-NIRMATRELVIR/RITONAVIR (PAXLOVID) #30 TABS PO STA (22:29)
[2022-09-13 22:31] LABS: BACTERIA,URINE NEGATIVE /HPF; WBC,URINE RARE /HPF
[2022-09-13 23:00] VITALS: BP 151/95
== END 2022-09-13 23:03 | disposition home or self-care (01) ==
LOC: EDUNIT# 20:44 → ER FS 20:45
DX: U07.1 COVID-19 (principal); J06.9 Acute upper respiratory infection, unspecified; E86.0 Dehydration; Z20.822 Contact with and (suspected) exposure to COVID-19
CPT/HCPCS: 36415; 71046; 80053; 81000; 83605; 85025; 86141; 87040; 87636